=== PATIENT | female | born 1995 | race Two or more races ===

== ENCOUNTER 2016-11-17 11:28 | Emergency (ER) | payer MEDICAID, OTHER ==
[~2016-11-17] VITALS: Ht 172.7 cm; Wt 81.0 kg
[~2016-11-17 11:28] MED LIST: PREN1TAB23 PO
[2016-11-17] MEDS ORDERED: VISCOUS LIDOCAINE 2% 15 ML UDC PO ONE (12:15)
[2016-11-17] MEDS ORDERED: FAMOTIDINE 20MG TABLET PO ONE (12:15)
[2016-11-17] MEDS ORDERED: MAGNESIUM/ALUMINUM HYDROXIDE/SIMETHICONE 30ML UDC PO ONE (12:15)
[2016-11-17 12:30] LABS: BASOPHILS % 0.8 % (0.0-2.0); EOSINOPHILS % 0.8 % (0.0-5.0); HEMATOCRIT. 37.4 % (36.0-48.0); HEMOGLOBIN. 12.3 g/dL (12.0-16.0); LYMPHOCYTES % 30.9 % (20.0-50.0); MEAN CORPUSCULAR HEMOGLOBIN 26.4 pg (28.0-32.0); MEAN CORPUSCULAR VOLUME 80.2 fL (81.0-99.0); MEAN PLATELET VOLUME 9.3 fl (7.4-10.4); MONOCYTES % 6.6 % (2.0-8.0); NEUTROPHILS % 60.9 % (40.0-76.0); PLATELET 214 x1000/uL (130-400); RED BLOOD CELL COUNT 4.67 mill/uL (4.2-5.4); RED CELL DISTRIBUTION WIDTH 14.6 % (11.6-14.6)
[2016-11-17 12:44] LABS: CARBON DIOXIDE 24 mEq/L (21-32); CHLORIDE 109 mEq/L (98-107)
[2016-11-17] MEDS ORDERED: LANSOPRAZOLE 30MG DR CAPSULE NG ONE (15:15)
[2016-11-17 15:21] VITALS: BP 110/72
== END 2016-11-17 16:34 | disposition home or self-care (01) ==
LOC: ER 12:27
DX: K29.70 Gastritis, unspecified, without bleeding (principal); J02.9 Acute pharyngitis, unspecified
CPT/HCPCS: 36415; 80053; 81025; 85025; 93005; 99283

== ENCOUNTER 2016-11-22 17:35 | Emergency (ER) | payer OTHER ==
[~2016-11-22] VITALS: Ht 172.7 cm; Wt 82.0 kg
[2016-11-22 17:51] VITALS: BP 130/64
== END 2016-11-22 20:30 | disposition left against medical advice (07) ==
LOC: ER 17:35
DX: R10.13 Epigastric pain (principal); R11.10 Vomiting, unspecified; Z53.21 Procedure and treatment not carried out due to patient leaving prior to being seen by health care provider

== ENCOUNTER 2017-02-07 21:20 | Emergency (ER) | payer OTHER ==
[~2017-02-07] VITALS: Ht 172.7 cm; Wt 84.0 kg
[2017-02-07 21:58] VITALS: BP 126/78
== END 2017-02-08 04:31 | disposition left against medical advice (07) ==
LOC: ER 21:21
DX: Z53.21 Procedure and treatment not carried out due to patient leaving prior to being seen by health care provider (principal)

== ENCOUNTER 2017-04-03 11:01 | Emergency (ER) | payer OTHER ==
[~2017-04-03] VITALS: Ht 172.7 cm; Wt 84.0 kg
[2017-04-03] MEDS ORDERED: ONDANSETRON HCL 4MG/2ML VIAL IV STA (11:32)
[2017-04-03] MEDS ORDERED: MAGNESIUM/ALUMINUM HYDROXIDE/SIMETHICONE 30ML UDC PO STA (11:32)
[2017-04-03] MEDS ORDERED: SODIUM CHLORIDE 0.9% 1,000 ML IV ONE (11:32)
[2017-04-03] MEDS ORDERED: VISCOUS LIDOCAINE 2% 15 ML UDC PO STA (11:32)
[2017-04-03] MEDS ORDERED: FAMOTIDINE 20MG/2ML VIAL IV STA (11:32)
[2017-04-03 11:56] LABS: HEMATOCRIT. 41.5 % (36.0-48.0); HEMOGLOBIN. 13.8 g/dL (12.0-16.0); MEAN CORPUSCULAR HEMOGLOBIN 27.8 pg (28.0-32.0); MEAN CORPUSCULAR VOLUME 83.6 fL (81.0-99.0); MEAN PLATELET VOLUME 9.5 fl (7.4-10.4); PLATELET 224 x1000/uL (130-400); RED BLOOD CELL COUNT 4.96 mill/uL (4.2-5.4); RED CELL DISTRIBUTION WIDTH 14.2 % (11.6-14.6)
[2017-04-03 12:08] LABS: CARBON DIOXIDE 22 mEq/L (21-32); CHLORIDE 109 mEq/L (98-107); ETHANOL BLOOD < 10 mg/dL
[2017-04-03 13:15] LABS: PLATELET ESTIMATE NORMAL
[2017-04-03 13:33] LABS: CLARITY URINE CLEAR (CLEAR); COLOR URINE YELLOW (YELLOW); GLUCOSE URINE NEGATIVE (NEGATIVE); KETONES URINE NEGATIVE (NEGATIVE); LEUKOCYTE ESTERASE URINE TRACE (NEGATIVE); NITRITE URINE NEGATIVE (NEGATIVE); OCCULT BLOOD URINE NEGATIVE (NEGATIVE); PH URINE 8.5 (4.5-8.0); PROTEIN URINE NEGATIVE (NEGATIVE); SPECIFIC GRAVITY URINE 1.014 (1.005-1.030); UROBILINOGEN URINE 0.2 E.U./dL (0.2-1.0)
[2017-04-03 14:20] VITALS: BP 117/73
[2017-04-03 14:22] LABS: *AMPHETAMINES SCREEN URINE NEGATIVE (NEGATIVE); *BARBITURATES SCREEN URINE NEGATIVE (NEGATIVE); *BENZODIAZEPINES SCREEN URINE NEGATIVE (NEGATIVE); *COCAINE SCREEN URINE NEGATIVE (NEGATIVE); CANNABINOID URINE SCREEN NEGATIVE (NEGATIVE); METHADONE URINE SCREEN NEGATIVE (NEGATIVE); OPIATES URINE SCREEN NEGATIVE (NEGATIVE); PHENCYCLIDINE URINE SCREEN NEGATIVE (NEGATIVE)
== END 2017-04-03 14:27 | disposition home or self-care (01) ==
LOC: ER 11:25
DX: R11.2 Nausea with vomiting, unspecified (principal); F12.10 Cannabis abuse, uncomplicated
CPT/HCPCS: 36415; 80053; 80305; 81001; 81025; 83690; 85025; 96361; 96374; 96375; 99284; G0482; J2405; J3490; J7030; Z7610

== ENCOUNTER 2019-04-19 20:37 | Emergency (ER) | payer OTHER ==
[~2019-04-19] VITALS: Ht 172.7 cm; Wt 99.0 kg
[2019-04-19 22:06] LABS: BASOPHILS % 0.5 % (0.0-2.0); EOSINOPHILS % 0.8 % (0.0-5.0); HEMOGLOBIN. 13.8 g/dL (12.0-16.0); LYMPHOCYTES % 37.4 % (20.0-50.0); MEAN CORPUSCULAR HEMOGLOBIN 27.5 pg (28.0-32.0); MEAN CORPUSCULAR VOLUME 83.5 fL (81.0-99.0); MEAN PLATELET VOLUME 9.8 fl (7.4-10.4); MONOCYTES % 5.6 % (2.0-8.0); NEUTROPHILS % 55.7 % (40.0-76.0); PLATELET 270 x1000/uL (130-400); RED BLOOD CELL COUNT 5.03 mill/uL (4.2-5.4); RED CELL DISTRIBUTION WIDTH 13.7 % (11.6-14.6)
[2019-04-19 22:11] LABS: CHLORIDE 106 mEq/L (98-107)
[2019-04-19] MEDS ORDERED: IOHEXOL-350 100 ML BOTTLE ONE (23:29)
[2019-04-20 01:45] VITALS: BP 127/69
== END 2019-04-20 02:05 | disposition home or self-care (01) ==
LOC: ER 20:37 → CANBEDREQ 04-20 02:36
DX: G45.9 Transient cerebral ischemic attack, unspecified (principal); F12.10 Cannabis abuse, uncomplicated; E78.00 Pure hypercholesterolemia, unspecified
CPT/HCPCS: 36415; 70496; 80053; 81025; 84484; 85025; 93005; 99284; Q9967